=== PATIENT | male | born 1975 | race Caucasian/White ===

== ENCOUNTER 2018-06-03 21:55 | Emergency (ER) | payer OTHER ==
[~2018-06-03] VITALS: Ht 185.4 cm; Wt 90.0 kg
[2018-06-03 21:59] VITALS: BP 134/63
== END 2018-06-03 23:44 | disposition home or self-care (01) ==
LOC: ED 23:38
DX: S70.12XA Contusion of left thigh, initial encounter (principal); S70.11XA Contusion of right thigh, initial encounter; W20.8XXA Other cause of strike by thrown, projected or falling object, initial encounter; Y93.89 Activity, other specified; Y99.8 Other external cause status; Y92.488 Other paved roadways as the place of occurrence of the external cause
CPT/HCPCS: 99284

== ENCOUNTER 2018-11-29 04:19 | Emergency (ER) | payer OTHER ==
[~2018-11-29] VITALS: Ht 188 cm; Wt 92.0 kg
[2018-11-29] MEDS ORDERED: SODIUM CHLORIDE FLUSH 10ML SYR IVF ONE (05:00)
[2018-11-29] MEDS ORDERED: ASPIRIN 81 MG TABLET CHEW PO ONE (05:00)
--- NOTE | 2018-11-29 05:08 | NUR ---
FIRST CONTACT WITH PT. PT C/O PALPITATION SINCE 3:30AM IN THE MORNING. PT DENIES CP/OLMSTEAD AT THIS TIME. 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 PT'S AOX4. RESPS EVEN AND UNLABORED. ALL MONITORS IN PLACE. CALL LIGHT WITHIN REACH.
[2018-11-29] MEDS ORDERED: ASPIRIN 81 MG TABLET CHEW ONE (05:18)
--- NOTE | 2018-11-29 05:29 | NUR ---
pt medicated per emar. pt tolerated well. pt's aox4. resps even and unlabored.
[2018-11-29 05:37] LABS: BASOPHILS # (AUTO) 0.03 x10^3/uL (0-0.1); BASOPHILS % (AUTO) 0 % (0-1); EOSINOPHILS # (AUTO) 0.19 x10^3/uL (0-0.4); EOSINOPHILS % (AUTO) 3 % (1-7); LYMPHOCYTES # (AUTO) 2.25 x10^3/uL (1-3.4); LYMPHOCYTES % (AUTO) 31 % (22-44); MD NO; MEAN CORPUSCULAR HEMOGLOBIN 31.9 pg (27.5-34.5); MEAN CORPUSCULAR HGB CONC 33.9 g/dL (33.2-36.2); MEAN CORPUSCULAR VOLUME 94.2 fL (81-97); MEAN PLATELET VOLUME 8.2 fL (7.4-10.4); MONOCYTES # (AUTO) 0.67 x10^3/uL (0.2-0.8); MONOCYTES % (AUTO) 9 % (2-9); NEUTROPHILS # (AUTO) 4.03 x10^3/uL (1.8-6.8); NEUTROPHILS % (AUTO) 56 % (42-75); PLATELET COUNT 349 x10^3/uL (130-400); RED BLOOD COUNT 5.48 x10^6/uL (4.38-5.82); RED CELL DISTRIBUTION WIDTH 13.4 % (9.4-14.8)
[2018-11-29 05:40] LABS: ALBUMIN 3.6 g/dL (3.4-5.0); ANION GAP 3 mmol/L (5-15); CALCIUM 8.6 mg/dL (8.5-10.1); CHLORIDE 112 mmol/L (98-107)
[2018-11-29 05:46] LABS: ALANINE AMINOTRANSFERASE 39 U/L (12-78); ALKALINE PHOSPHATASE 58 U/L (45-117); TROPONIN I < 0.015 ng/mL (0.000-0.045)
[2018-11-29 05:50] LABS: BILIRUBIN,TOTAL 0.7 mg/dL (0.2-1.0)
[2018-11-29 06:42] VITALS: BP 101/69
--- NOTE | 2018-11-29 06:42 | NUR ---
PT RESTING IN [facility]. 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 PT'S AOX4. RESPS EVEN AND UNLABORED. ALL MONITORS IN PLACE. CALL LIGHT WITHIN REACH.
[2018-11-29] MEDS ORDERED: PROPOFOL 10 MG/ML, 20ML IVP ONE (07:00)
--- NOTE | 2018-11-29 07:00 | NUR ---
BEDSIDE REPORT FROM HIMA CARTAGENA.
--- NOTE | 2018-11-29 07:02 | NUR ---
REPORT GIVEN TO BRAD RABAGO.
[2018-11-29] MEDS ORDERED: PROPOFOL 10 MG/ML, 20ML ONE (07:03)
[2018-11-29] MEDS ORDERED: APIXABAN 5 MG TABLET PO ONE (08:02)
--- NOTE | 2018-11-29 08:20 | NUR ---
PROCEDURAL SEDATION FOR CARDIOVERSION COMPLETED. NO COMPLICATIONS. PT AT BASELINE CURRENTLY. POC UPDATED. AWAITING FOR ECHO TO BE COMPLETED.
--- NOTE | 2018-11-29 08:30 | NUR ---
ECHO AT BEDSIDE.
--- NOTE | 2018-11-29 09:30 | NUR ---
RESULS BACK. AWAITING RECHECK AT THIS TIME.
[2018-11-29 10:19] LABS: T4 (THYROXINE) 8.6 mcg/dL (4.5-12.1)
--- NOTE | 2018-11-29 10:30 | NUR ---
PLEASE SEE PROCEDURAL SEDATION PAPERWORK FOR VITALS.
--- NOTE | 2018-11-29 10:34 | NUR ---
PT GIVEN DC PAPERWORK. AWARE TO FOLLOW UP [facility].
== END 2018-11-29 11:05 | disposition home or self-care (01) ==
LOC: ED 07:06
DX: I48.0 Paroxysmal atrial fibrillation (principal)
CPT/HCPCS: 36415; 71045; 80053; 84436; 84481; 84484; 85025; 92960; 93005; 93306; 99285

== ENCOUNTER 2019-08-09 22:43 | Emergency (ER) | payer OTHER ==
[~2019-08-09] VITALS: Ht 185.4 cm; Wt 91.1 kg
[2019-08-09] MEDS ORDERED: KETOROLAC 30 MG/1 ML IVPush ONE (23:00)
[2019-08-09] MEDS ORDERED: SODIUM CHLORIDE FLUSH 10ML SYR IVF ONE (23:00)
[2019-08-09] MEDS ORDERED: SODIUM CHLORIDE 0.9% 1,000ML IVBOLUS ONE (23:00)
[2019-08-09 23:18] LABS: BASOPHILS # (AUTO) 0.03 x10^3/uL (0-0.1); BASOPHILS % (AUTO) 0 % (0-1); EOSINOPHILS # (AUTO) 0.02 x10^3/uL (0-0.4); EOSINOPHILS % (AUTO) 0 % (1-7); LYMPHOCYTES # (AUTO) 0.94 x10^3/uL (1-3.4); LYMPHOCYTES % (AUTO) 11 % (22-44); MD NO; MEAN CORPUSCULAR HEMOGLOBIN 32.6 pg (27.5-34.5); MEAN CORPUSCULAR HGB CONC 33.6 g/dL (33.2-36.2); MEAN CORPUSCULAR VOLUME 96.9 fL (81-97); MONOCYTES # (AUTO) 0.83 x10^3/uL (0.2-0.8); MONOCYTES % (AUTO) 9 % (2-9); NEUTROPHILS # (AUTO) 7.04 x10^3/uL (1.8-6.8); NEUTROPHILS % (AUTO) 80 % (42-75); PLATELET COUNT 262 x10^3/uL (130-400); RED BLOOD COUNT 5.43 x10^6/uL (4.38-5.82); RED CELL DISTRIBUTION WIDTH 13.6 % (9.4-14.8)
[2019-08-09 23:26] LABS: ALANINE AMINOTRANSFERASE 34 U/L (12-78); ALBUMIN 3.7 g/dL (3.4-5.0); ANION GAP 5 mmol/L (5-15); CHLORIDE 106 mmol/L (98-107); CREATININE 1.24 mg/dL (0.7-1.3)
[2019-08-09] MEDS ORDERED: KETOROLAC 30 MG/1 ML ONE (23:26)
[2019-08-09 23:28] LABS: ALKALINE PHOSPHATASE 53 U/L (45-117); BILIRUBIN,TOTAL 0.4 mg/dL (0.2-1.0); TOTAL PROTEIN 7.5 g/dL (6.4-8.2)
[2019-08-09 23:31] LABS: RAPID INFLUENZA A Negative (Negative); RAPID INFLUENZA B Negative (Negative)
--- NOTE | 2019-08-09 23:42 | NUR ---
PT HERE FOR FLU LIKE SYMPTOMS. VSS. PIV PLACED AND FLUIDS RUNNING. PT MEDICATED. LABS DRAWN. PT HAS NO NEEDS AT THIS TIME. CALL LIGHT IN REACH
[2019-08-10 00:34] VITALS: BP 118/76
== END 2019-08-10 00:36 | disposition home or self-care (01) ==
LOC: ED 23:10
DX: B34.9 Viral infection, unspecified (principal); R11.10 Vomiting, unspecified; R19.7 Diarrhea, unspecified; J00 Acute nasopharyngitis [common cold]; I48.91 Unspecified atrial fibrillation
CPT/HCPCS: 36415; 71045; 80053; 85025; 87400; 93005; 96374; 99284; J1885; J7030

== ENCOUNTER 2019-09-12 06:36 | Day surgery (SDC) | payer OTHER ==
[~2019-09-12] VITALS: Ht 185.4 cm; Wt 88.6 kg
[2019-09-12] MEDS ORDERED: LIDOCAINE 2%, 20ML ONE (07:09)
== END 2019-09-12 08:24 | disposition home or self-care (01) ==
LOC: CACL 06:36
PROVIDERS: ATTEND Internal Medicine Cardiovascular Disease
DX: R00.1 Bradycardia, unspecified (principal); I48.91 Unspecified atrial fibrillation; J45.909 Unspecified asthma, uncomplicated; Z79.01 Long term (current) use of anticoagulants; Z79.899 Other long term (current) drug therapy
CPT/HCPCS: 33285; C1764